=== PATIENT | male | born 1965 | race African-American/Black ===

== ENCOUNTER 2018-07-08 13:50 | Inpatient (IN) | payer MEDICAID, OTHER ==
[~2018-07-08] VITALS: Ht 195.6 cm; Wt 136.5 kg
[~2018-07-08 13:50] MED LIST: S350 PO
[2018-07-08] MEDS ORDERED: ONDANSETRON HCL 4MG/2ML INJ IV ONE ×3 (16:00→18:15)
[2018-07-08 16:14] LABS: BASOPHILS % 0.5 % (0.0-2.0); EOSINOPHILS % 0.2 % (0.0-5.0); HEMATOCRIT. 49.6 % (42.0-52.0); HEMOGLOBIN. 16.5 g/dL (14.0-18.0); LYMPHOCYTES % 35.1 % (20.0-50.0); MEAN CORPUSCULAR HEMOGLOBIN 27.4 pg (28.0-32.0); MEAN CORPUSCULAR VOLUME 82.1 fL (80.0-94.0); MONOCYTES % 8.3 % (2.0-8.0); NEUTROPHILS % 55.9 % (40.0-76.0); PLATELET 286 x1000/uL (130-400); RED BLOOD CELL COUNT 6.04 mill/uL (4.7-6.1); RED CELL DISTRIBUTION WIDTH 14.6 % (11.6-14.6)
[2018-07-08 16:18] LABS: CHLORIDE 108 mEq/L (98-107)
[2018-07-08 16:21] LABS: INR 1.1; PROTHROMBIN TIME 10.9 sec (9.1-11.1)
[2018-07-08 16:22] LABS: ETHANOL BLOOD < 10 mg/dL
[2018-07-08] MEDS ORDERED: SODIUM CHLORIDE 0.9% 1,000 ML IV ONE (17:15)
[2018-07-08] MEDS ORDERED: CLONIDINE 0.2MG TABLET PO ONE (17:45)
[2018-07-08 18:29] LABS: CLARITY URINE CLEAR (CLEAR); COLOR URINE YELLOW (YELLOW); KETONES URINE TRACE (NEGATIVE); LEUKOCYTE ESTERASE URINE TRACE (NEGATIVE); NITRITE URINE NEGATIVE (NEGATIVE); OCCULT BLOOD URINE NEGATIVE (NEGATIVE); PROTEIN URINE 3+ (NEGATIVE); SPECIFIC GRAVITY URINE 1.019 (1.005-1.030)
[2018-07-08 18:39] LABS: *AMPHETAMINES SCREEN URINE NEGATIVE (NEGATIVE); *BARBITURATES SCREEN URINE NEGATIVE (NEGATIVE); *BENZODIAZEPINES SCREEN URINE NEGATIVE (NEGATIVE); *COCAINE SCREEN URINE NEGATIVE (NEGATIVE); METHADONE URINE SCREEN NEGATIVE (NEGATIVE)
[2018-07-08 18:40] LABS: CANNABINOID URINE SCREEN PRESUMTIVE POSITIVE (NEGATIVE); OPIATES URINE SCREEN PRESUMTIVE POSITIVE (NEGATIVE); PHENCYCLIDINE URINE SCREEN NEGATIVE (NEGATIVE)
[2018-07-08] MEDS ORDERED: DILTIAZEM HCL 125 MG in DEXT 5% WATER 100 ML IV ONE ×2 (20:30→20:45)
[2018-07-08] MEDS ORDERED: METOCLOPRAMIDE HCL 10MG/2ML VIAL IV ONE (20:30)
[2018-07-09] VITALS (14 sets, daily range): BP systolic 112–179; BP diastolic 19–106
[2018-07-09] MEDS ORDERED: MAGNESIUM/ALUMINUM HYDROXIDE/SIMETHICONE 30ML UDC PO PRN (00:30)
[2018-07-09] MEDS ORDERED: CLONIDINE 0.1MG TABLET PO PRN (00:30)
[2018-07-09] MEDS ORDERED: HYDRALAZINE 20MG/ML VIAL IV PRN (00:30)
[2018-07-09] MEDS ORDERED: CARISOPRODOL 350 MG TABLET PO PRN (00:30)
[2018-07-09] MEDS ORDERED: DIPHENHYDRAMINE 50MG/ML VIAL IV PRN (00:30)
[2018-07-09] MEDS ORDERED: ACETAMINOPHEN 325MG TABLET PO PRN (00:30)
[2018-07-09] MEDS ORDERED: ONDANSETRON HCL 4MG/2ML INJ IV PRN (00:30)
[2018-07-09] MEDS: DEXT 5%/0.45% NACL 1000ML 1,000 ML IV SCH ×2 (01:00→11:35)
[2018-07-09] MEDS: SODIUM CHLORIDE 0.9% INJ 3ML FLUSH IVF SCH ×3 (06:32→22:00)
[2018-07-09] MEDS: GABAPENTIN 300MG CAPSULE PO SCH ×3 (06:34→23:04)
[2018-07-09] MEDS ORDERED: HYDR-4009 PO (07:53)
[2018-07-09] MEDS ORDERED: S350 PO (08:02)
[2018-07-09] MEDS ORDERED: BACL20TA PO (08:02)
[2018-07-09] MEDS ORDERED: GABA-531 PO (08:02)
[2018-07-09] MEDS ORDERED: AMLO10TA80 PO (08:02)
[2018-07-09] MEDS: AMLODIPINE 10MG TABLET PO SCH (09:15)
[2018-07-09] MEDS: CYCLOBENZAPRINE 10MG TABLET PO SCH ×2 (15:11→23:05)
[2018-07-09] MEDS: CLONIDINE 0.1MG TABLET PO SCH ×2 (15:12→23:05)
[2018-07-09] MEDS: HYDROCODONE/ACETAMINOPHEN 10/325MG TABLET PO PRN (23:33)
[2018-07-10] VITALS (10 sets, daily range): BP systolic 109–149; BP diastolic 58–101
[2018-07-10] MEDS: GABAPENTIN 300MG CAPSULE PO SCH ×2 (05:27→13:23)
[2018-07-10] MEDS: CYCLOBENZAPRINE 10MG TABLET PO SCH ×2 (05:28→13:23)
[2018-07-10] MEDS: SODIUM CHLORIDE 0.9% INJ 3ML FLUSH IVF SCH ×2 (05:29→13:18)
[2018-07-10] MEDS: CLONIDINE 0.1MG TABLET PO SCH ×2 (05:29→13:24)
[2018-07-10] MEDS: HYDROCODONE/ACETAMINOPHEN 10/325MG TABLET PO PRN (08:09)
[2018-07-10] MEDS: AMLODIPINE 10MG TABLET PO SCH (08:09)
== END 2018-07-10 16:45 | disposition home or self-care (01) | DRG 199 ==
LOC: ER 13:50 → 3WST 20:40 → EDBEDREQSVC 07-09 01:57 → ENRESERV 07-09 05:43
PROVIDERS: ADMIT Internal Medicine; ATTEND Internal Medicine
DX: I16.1 Hypertensive emergency (principal); E87.8 Other disorders of electrolyte and fluid balance, not elsewhere classified; E66.9 Obesity, unspecified; G89.29 Other chronic pain; M54.5 Low back pain; N28.9 Disorder of kidney and ureter, unspecified; I10 Essential (primary) hypertension; Z72.0 Tobacco use; Z68.35 Body mass index [BMI] 35.0-35.9, adult
CPT/HCPCS: 36415; 71045; 80048; 80305; 80320; 83880; 84484; 93005; 96361; 96374; 96375; 99291; J0360; J2405; J3490; J7030; J7060; G0480